=== PATIENT | male | born 1990 | race Caucasian/White ===

== ENCOUNTER 2018-02-16 03:10 | Emergency (ER) | payer SELFPAY ==
[~2018-02-16] VITALS: Ht 177.8 cm; Wt 77.1 kg
[2018-02-16 03:18] VITALS: BP 137/80
== END 2018-02-16 04:56 | disposition left against medical advice (07) ==
LOC: ER 03:10
DX: M79.672 Pain in left foot (principal); Z53.21 Procedure and treatment not carried out due to patient leaving prior to being seen by health care provider
CPT/HCPCS: 73620

== ENCOUNTER 2019-12-05 23:33 | Emergency (ER) | payer MEDICAID ==
[~2019-12-05] VITALS: Ht 182.9 cm; Wt 81.6 kg
[2019-12-05 23:35] VITALS: BP 124/89
== END 2019-12-06 00:34 | disposition left against medical advice (07) ==
LOC: ER 23:38
DX: R51 Headache (principal); F17.210 Nicotine dependence, cigarettes, uncomplicated; F12.10 Cannabis abuse, uncomplicated; F15.10 Other stimulant abuse, uncomplicated

== ENCOUNTER 2022-11-05 15:54 | Emergency (ER) | payer MEDICAID ==
[~2022-11-05] VITALS: Ht 167.6 cm; Wt 63.6 kg
[2022-11-05] MEDS ORDERED: ALBUTEROL SULF 2.5 MG/0.5ML(0.5%) NEB SOLN NEB ONE (16:45)
[2022-11-05] MEDS ORDERED: IPRATROPIUM BROM 0.5 MG/2.5ML INH SOL NEB ONE (16:45)
[2022-11-05 17:01] VITALS: BP 127/72
[2022-11-05] MEDS ORDERED: cefTRIAXone SOD 1,000 MG VL IM ONE (17:15)
[2022-11-05] MEDS ORDERED: LIDO2SOL23 MT (17:20)
[2022-11-05] MEDS ORDERED: PRED20TA2 PO (17:20)
== END 2022-11-05 17:42 | disposition home or self-care (01) ==
LOC: EDBD 15:54 → ER 15:55
DX: J02.9 Acute pharyngitis, unspecified (principal); J98.01 Acute bronchospasm; F41.9 Anxiety disorder, unspecified; F32.9 Major depressive disorder, single episode, unspecified; F17.210 Nicotine dependence, cigarettes, uncomplicated; F12.90 Cannabis use, unspecified, uncomplicated; F15.90 Other stimulant use, unspecified, uncomplicated
CPT/HCPCS: 71045; 94640; 96372; 99283; J0696; J7644